=== PATIENT | male | born 1970 | race African-American/Black ===

== ENCOUNTER 2016-09-15 00:25 | Emergency (ER) | payer BC ==
[2016-09-15 03:01] LABS: ALANINE AMINOTRANSFERASE 29 U/L (21-72); ALBUMIN 4.3 g/dL (3.5-5.0); ALKALINE PHOSPHATASE 91 U/L (38-126); ANION GAP 16 (5-19); ASPARTATE AMINO TRANSFERASE 20 U/L (17-59); BILIRUBIN,DIRECT 0.3 mg/dL (0.0-0.4); BILIRUBIN,TOTAL 0.5 mg/dL (0.2-1.3); BLOOD UREA NITROGEN 16 mg/dL (7-20); CALCIUM 9.6 mg/dL (8.4-10.2); CARBON DIOXIDE 24 mmol/L (22-30); CHLORIDE 107 mmol/L (98-107); CREATINE KINASE 139 U/L (55-170); CREATININE RESULT 0.86 mg/dL (0.52-1.25); GLUCOSE 135 mg/dL (75-110); POTASSIUM 4.7 mmol/L (3.6-5.0); SODIUM 146.7 mmol/L (137-145); TOTAL PROTEIN 7.4 g/dL (6.3-8.2)
[2016-09-15 03:02] LABS: ABSOLUTE LYMPHOCYTES (AUTO) 0.8 10^3/uL (0.5-4.7); ABSOLUTE MONOCYTES (AUTO) 0.6 10^3/uL (0.1-1.4); ABSOLUTE NEUT (AUTO) 8.4 10^3/uL (1.7-8.2); BASOPHILS % (AUTO) 0.1 % (0-2); EOSINOPHILS % (AUTO) 0.2 % (0-6); HEMATOCRIT 38.2 % (37.9-51.0); HGB HCT DIFFERENCE 0.8; LYMPHOCYTES % (AUTO) 7.8 % (13-45); MEAN CORPUSCULAR HEMOGLOBIN 29.1 pg (27.0-33.4); MEAN CORPUSCULAR VOLUME 86 fl (80-97); MONOCYTES % (AUTO) 5.8 % (3-13); RED BLOOD COUNT 4.46 10^6/uL (4.35-5.55); RED CELL DISTRIBUTION WIDTH 13.7 % (11.5-14.0); SEGMENTED NEUTROPHILS % (AUTO) 86.1 % (42-78); WHITE BLOOD COUNT 9.8 10^3/uL (4.0-10.5)
--- NOTE | 2016-09-15 03:10 | ER Document Report ---
ED General - General Chief Complaint: Dizziness Stated Complaint: DIZZINESS Notes: Patient is a 46 show male who presents for complaint of dizziness and spinning type sensation and some nausea. He did vomit once. He said after vomiting he had little bit pain but the pain since gone away. He says when he turns his head to the left his symptoms do improve. When he looks straighter turns head to the right symptoms worsen. He did have a recent runny nose cough and congestion a few days ago. No fevers. He has slight headache yesterday but none today. No focal weakness or numbness. No slurred speech. No focal neurologic deficits. TRAVEL OUTSIDE OF THE [place] IN LAST 30 DAYS: No - Related Data Allergies/Adverse Reactions: No Known Allergies Allergy (Unverified 09/15/16 01:02) Past Medical History - Social History Smoking Status: Unknown if Ever Smoked Frequency of alcohol use: None Drug Abuse: None Family History: Reviewed & Not Pertinent Patient has suicidal ideation: No Patient has homicidal ideation: No Renal/ Medical History: Denies: Hx Peritoneal Dialysis Review of Systems - Review of Systems Notes: My Normal Review Basic REVIEW OF SYSTEMS: CONSTITUTIONAL : Denies fever, chills, or sweats. Denies recent illness. EENT: Vertigo type dizziness. Recent nasal congestion. CARDIOVASCULAR: Denies chest pain. RESPIRATORY: Denies cough, cold, or chest congestion. Denies shortness of breath, difficulty breathing, or wheezing. GASTROINTESTINAL: Denies abdominal pain. Denies nausea, vomiting, or diarrhea. Denies constipation. Last BM: GENITOURINARY: Denies difficulty urinating, painful urination, burning, frequency, or blood in urine.P: MUSCULOSKELETAL: Denies neck or back pain or joint pain or swelling. SKIN: Denies rash or skin lesions. NEUROLOGICAL: Denies altered mental status or loss of consciousness. Denies headache. Denies weakness or paralysis or loss of use of either side. Denies problems with gait or speech. Denies sensory or motor loss. ALL OTHER SYSTEMS REVIEWED AND NEGATIVE. Physical Exam - Vital signs Vitals: Temp Pulse Resp BP Pulse Ox 98.4 F 60 18 158/96 H 97 09/15/16 00:59 09/15/16 00:59 09/15/16 00:59 09/15/16 00:59 09/15/16 00:59 - Notes Notes: General Appearance: Well nourished, alert, cooperative, no acute distress, no obvious discomfort. Vitals: reviewed, See vital signs table. Head: no swelling or tenderness to the head Eyes: PERRL, EOMI, Conjuctiva clear. Nystagmus with right lateral gaze. Nystagmus improves with left gaze. Nystagmus is horizontal. Mouth: No decreasd moisture Ears: Clear fluid behind the right TM. Left TM is normal appearing. Throat: No tonsillar inflammation, No airway obstruction, No lymphadenopathy Neck: Supple, no neck tenderness, No thyromegaly Lungs: No wheezing, No rales, No rhonci, No accessory muscle use, good air exchange bilaterally. Heart: Normal rate, Regular rythm, No murmur, no rub Abdomen: Normal BS, soft, No rigidity, No abdominal tenderness, No guarding, no rebound, no abdominal masses, no organomegaly Extremities: strength 5/5 in all extremities, good pulses in all extremities, no swelling or tenderness in the extremities, no edema. Skin: warm, dry, appropriate color, no rash Neuro: speech clear, oriented x 3, normal affect, responds appropriately to questions. Cranial nerves II through XII are intact. Distal sensation intact. Patient moves all extremities without difficulty. No focal neurologic deficits on exam. Course - Vital Signs Vital signs: Temp Pulse Resp BP Pulse Ox 98.4 F 60 20 158/96 H 97 09/15/16 00:59 09/15/16 03:46 09/15/16 03:46 09/15/16 03:46 09/15/16 03:46 - Laboratory Result Diagrams: 09/15/16 02:14 09/15/16 02:14 Laboratory results interpreted by me: 09/15/16 09/15/16 02:14 02:14 Hgb 13.0 L Seg Neutrophils % 86.1 H Lymphocytes % 7.8 L Absolute Neutrophils 8.4 H Sodium 146.7 H Glucose 135 H - EKG Interpretation by Me Additional EKG results interpreted by me: 09/15/16 03:09 EKG is reviewed and interpreted by me. EKG shows sinus rhythm with rate of [address] segment elevation or depression. No ischemic to inversions. NC interval, QRS duration, QTC intervals are within normal range. No old EKG available for comparison. - Transfer of Care Notes: 09/15/16 04:32 Patient's vertigo did improve significantly with the meclizine. His symptoms are not completely, however improved. Think his vertigo is peripheral. He came on after having a cold like symptoms. He has forced on all nystagmus is fatigable. Symptoms are improved with turning sent left. Has no other focal neurologic deficits. This time I'll discharge him home with prescription for meclizine. I will give him follow-up with ENT. I encouraged return to ER if has any worsening of his symptoms. Patient agrees with plan and will be discharged home. Dictation of this chart was performed using voice recognition software; therefore, there may be some unintended grammatical errors. Discharge - Discharge Clinical Impression: Vertigo Condition: Good Disposition: HOME, SELF-CARE Instructions: Vertigo ([facility]) Additional Instructions: Please return to the ER if you have worsening of your dizziness, headaches, fevers, or feel unwell. Please follow up with the ENT doctor next week if you continue to have the dizziness despite the medication. Do not drive if you are still having the dizziness. Prescriptions: Meclizine HCl 25 mg PO TID PRN #30 tablet PRN Reason: dizziness Forms: Return to Work Referrals: TANYA BENNETT MD [Primary Care Provider] - Follow up as needed ROBEL FARIAS MD [[facility]] - Follow up in 3-5 days
[2016-09-15 03:11] LABS: CREATINE KINASE MB 0.31 ng/mL (<4.55)
[2016-09-15 03:15] LABS: TROPONIN I < 0.012 ng/mL
[2016-09-15] MEDS ORDERED: MECLIZINE HCL 25 MG TABLET PO ONE (03:15)
[2016-09-15 05:07] VITALS: BP 127/70
--- NOTE | 2016-09-15 08:36 | EKG REPORT ---
SEVERITY:- OTHERWISE NORMAL ECG - SINUS RHYTHM BORDERLINE LEFT AXIS DEVIATION : Confirmed by: Daryl Garcia MD 15-Sep-2016 08:36:03
== END 2016-09-15 05:07 | disposition home or self-care (01) ==
LOC: ER 00:25
DX: R42 Dizziness and giddiness (principal); R11.2 Nausea with vomiting, unspecified
CPT/HCPCS: 36415; 80053; 82550; 82553; 84484; 85025; 93005; 93010; 99284

== ENCOUNTER → 2019-12-12 | Outpatient (CLI) | payer BC ==
--- NOTE | 2019-12-12 20:55 | XCELERA REPORT ---
[address] [address] Transthoracic Echocardiogram Report Name: BLAZE CHAN Age: 49 yrs Gender: Male : 1970 Patient Status: Outpatient Patient Location: [facility] Study Date: 12/12/2019 09:09 AM Height: 71 in Weight: 374 lb BSA: 2.8 m2 Reason For Study: DIZZINESS Ordering Physician: BRANDI MACIAS Performed By: Kelin Cornejo Interpretation Summary Poor study due to pts body habitus, 511, 374#. PLAX was acquired from a too low and too medial intercostal space. No significant posterior pericardial effusion. AV is obscured on SAX, unable to confirm 3 cusps, no , no AR. Mild mitral annular calcification. No MS, No MVP. Trace MR with No left atrial enlargement, MARCIA not calculated. Mild concentric LVH (IVS/PW = 11/11 mm), LVEF 60%, no LV diastolic dysfunction, Incomplete visualization of all segments of LV, PLAX and apical 2 chamber view suboptimal, unable to analyse. No LV enlargement. Tricuspid valve, trace TV regurgitation. No TR trace to derive RVSP. Right heart is normal size, no suspicion of RV systolic dysfunction or enlargement. No ASD. IVC not dilated. Trace KS. Summary of findings = Borderline LVH, within normal LVEF, with no LV Diastolic Dysfunction. Incomplete LV segmental analysis due to poor PLAX & apical 2 chamber view. Mild physiological MR, TR, KS. Complaint of dizziness is not an indication for cardiac ECHO. Dr Daryl Garcia. MMode/2D Measurements & Calculations RVDd: 1.9 cm LVIDd: 5.1 cm FS: 35.6 % Ao root diam: IVSd: 1.1 cm LVIDs: 3.3 cm EDV(Teich): 2.7 cm LVPWd: 0.97 cm 123.4 ml Ao root area: ESV(Teich): 43.5 ml 5.7 cm2 LA dimension: EF(Teich): 64.8 % 3.3 cm LVLd ap4: 8.4 cm SV(MOD-sp4): EDV(MOD-sp4): 77.0 ml 121.0 ml LVLs ap4: 7.2 cm ESV(MOD-sp4): 44.0 ml EF(MOD-sp4): 63.6 % Doppler Measurements & Calculations MV E max raine: MV P1/2t max raine: Ao V2 max: LV V1 max P.3 cm/sec 103.7 cm/sec 152.2 cm/sec 8.5 mmHg MV A max raine: MV P1/2t: 60.3 msec Ao max PG: LV V1 max: 84.5 cm/sec MVA(P1/2t): 3.6 cm2 9.3 mmHg 145.6 cm/sec MV E/A: 1.2 MV dec slope: 504.1 cm/sec2 MV dec time: 0.22 sec PA V2 max: MV P1/2t-pr_phl: 166.8 cm/sec 60.3 msec PA max P.1 mmHg I WMSI = 1.33 % Normal = 67 Segments Size X - Cannot 2 - 4 - 1-2 small Interpret 1 - Normal Hypokinetic 3 - AkineticDyskinetic 3-5 moderate 5 - 6-14 large Aneurysmal 15-16 diffuse : BRANDI MACIAS Andre
== END ==
LOC: SP 08:56
PROVIDERS: ATTEND Internal Medicine
DX: R42 Dizziness and giddiness (principal)
CPT/HCPCS: 93306